=== PATIENT | male | born 1950 | race Caucasian/White ===

== ENCOUNTER 2022-07-28 11:11 | Inpatient (IN) | payer MEDICARE, OTHER ==
[~2022-07-28] VITALS: Ht 172.7 cm; Wt 68.0 kg
[2022-07-28 11:53] LABS: HEMATOCRIT 39.8 % (36.7-47.1); MEAN CORPUSCULAR HEMOGLOBIN 25.9 uug (23.8-33.4); MEAN CORPUSCULAR VOLUME 80.4 fL (73.0-96.2); PLATELET COUNT (AUTO) 343 K/uL (152-348)
--- NOTE | 2022-07-28 12:05 | NUR ---
PT IS IN ROOM #2A. DR STARK EVALUATED THE PT.
[2022-07-28 12:10] LABS: ALANINE AMINOTRANSFERASE 16 U/L (16-63); ALKALINE PHOSPHATASE 118 U/L (50-136); ASPARTATE AMINOTRANSFERASE 20 U/L (15-37); BILIRUBIN,DIRECT 0.2 mg/dL (0.0-0.2); BILIRUBIN,TOTAL 0.5 mg/dL (0.2-1.0); CARBON DIOXIDE 30 mmol/L (21-32); CHLORIDE 101 mmol/L (98-107); CREATININE 0.9 mg/dL (0.6-1.3); GLUCOSE 104 mg/dL (74-106); TOTAL PROTEIN, SERUM 6.7 g/dL (6.4-8.2); UREA NITROGEN, BLOOD 15 mg/dL (7-18)
[2022-07-28] MEDS ORDERED: CEFTRIAXONE /D5W 50ML IVPB **ER PYXIS IV ONE (13:15)
[2022-07-28] MEDS ORDERED: AZITHROMYCIN 500MG/ D5W 250ML IVPB **ER PYXIS ONLY IV ONE (13:15)
[2022-07-28] MEDS ORDERED: CEFTRIAXONE 1 G in IV DEXTROSE 5% 50 ML IV ONE (13:15)
[2022-07-28] MEDS ORDERED: AZITHROMYCIN IV 500 MG in IV DEXTROSE 5% 250 ML IV ONE (13:15)
[2022-07-28] MEDS ORDERED: ACET325C7 PO (13:45)
[2022-07-28] MEDS ORDERED: DEUT12TA PO (13:58)
[2022-07-28] MEDS ORDERED: FOLI1TAB27 PO (13:58)
[2022-07-28] MEDS ORDERED: FAMO20TA8 PO (13:58)
[2022-07-28] MEDS ORDERED: MULT-594 PO (13:58)
[2022-07-28] MEDS ORDERED: LATA2.5D2 EACHEYE (13:58)
[2022-07-28] MEDS ORDERED: LEVE500T20 PO (13:58)
[2022-07-28] MEDS ORDERED: SODIUM CHLORIDE PO (13:58)
[2022-07-28] MEDS ORDERED: ASPI81TA31 PO (13:58)
[2022-07-28] MEDS ORDERED: MIRT-121 PO (13:58)
[2022-07-28] MEDS ORDERED: AMAN100T PO (13:58)
[2022-07-28] MEDS ORDERED: ATOR10TA PO (13:58)
[2022-07-28] MEDS ORDERED: SENN8.6T19 PO (13:58)
[2022-07-28] MEDS ORDERED: BENZ1TAB7 PO (13:58)
[2022-07-28] MEDS ORDERED: BISA10SU95 RC (13:58)
[2022-07-28] MEDS ORDERED: SERT25TA PO (13:58)
[2022-07-28] MEDS ORDERED: DOCU100T2 PO (13:58)
[2022-07-28] MEDS ORDERED: POLY17PO4 PO (13:58)
[2022-07-28] MEDS ORDERED: CHOL-9 PO (13:58)
[2022-07-28] MEDS ORDERED: DONE5TAB34 PO (13:58)
[2022-07-28] MEDS ORDERED: LACT-15 PO (13:58)
--- NOTE | 2022-07-28 15:01 | NUR ---
REPORT WAS GIVEN TO VENEER SAWYER. PT WAS TRANSFERED TO TELEMETRY ROOM #304.
--- NOTE | 2022-07-28 15:15 | NUR ---
ADMITTED FROM [facility] VIA ER A 71 YO MALE AWAKE ALERT AND ANSWERS QUESTIONS APPROPRIATELY WITH ADM DX PF PNEUMONIA. WARM AND DRY TO TOUCH WITH RA O2 SATS 98% RA. ORIENTED TO ROOM, ROUTINE ADMISSION ASSESSMENTS INITIATED DR SALES NOTIFIED FOR ADMISSION ORDERS. SR ON MONITOR
[2022-07-28 16:06] VITALS: BP 111/60
[2022-07-28] MEDS ORDERED: MIRALAX 17 GM POWD.PACK PO PRN (16:45)
[2022-07-28] MEDS ORDERED: Medication Not On Formulary EA (Acetaminophen (Tylenol) 650 MG) PO SCH (16:45)
[2022-07-28] MEDS ORDERED: DEUTETRABENAZINE 12 MG PO SCH (17:00)
[2022-07-28] MEDS ORDERED: ACETAMINOPHEN 325 MG TABLET PO PRN (17:00)
[2022-07-28] MEDS ORDERED: MORPHINE SULFATE 2 MG/1 ML DISP.SYRIN IV PRN (17:00)
[2022-07-28] MEDS ORDERED: POTASSIUM CHLORIDE 20 MEQ TAB.PRT.SR PO ONE (17:15)
[2022-07-28] MEDS ORDERED: POTASSIUM CHLORIDE 20 MEQ POWDER PACKET PO ONE (17:30)
[2022-07-28] MEDS: AMANTADINE HCL 100 MG CAPSULE PO SCH (17:38)
[2022-07-28] MEDS: levETIRAcetam 500 MG TABLET PO SCH (17:38)
[2022-07-28] MEDS: BENZTROPINE MESYLATE 1 MG TABLET PO SCH (17:38)
[2022-07-28] MEDS ORDERED: PIPERACILLIN SODIUM/TAZOBACTAM 3.375 G in IV DEXTROSE 5% 50 ML IV SCH ×4 (18:00)
[2022-07-28 18:22] LABS: *BILIRUBIN,URIN NEGATIVE (NEGATIVE); *CLARITY,URINE CLEAR (CLEAR); *COLOR,URINE YELLOW (YELLOW); *KETONES,URINE NEGATIVE (NEGATIVE); *UROBILINOGEN,URINE 0.2 E.U./dl (NORMAL); LEUKOCYTE ESTERASE ,URINE 1+ (NEGATIVE); NITRITE, URINE NEGATIVE (NEGATIVE); PH,URINE 6.5 (5.0-8.0); UGLUCOSE NEGATIVE (NEGATIVE)
[2022-07-28 18:24] LABS: *BLOOD, URINE TRACE (NEGATIVE)
[2022-07-28 18:42] LABS: BACTERIA,URINE MANY /HPF (NONE SEEN); SQUAMOUS EPITHELIAL CELL,UR MANY /HPF (NONE SEEN); WBC,URINE 20-50 /HPF (0-3)
[2022-07-28 18:43] LABS: COARSE GRANULAR CASTS,URINE 0-3 /LPF
[2022-07-28 20:00] VITALS: BP 100/60
--- NOTE | 2022-07-28 20:00 | NUR ---
NSG: Received patient lying in bed. Alert and oriented x2. verbally responsive. no c/o pain or discomfort at this time. on telemetry which showing sr 60-70. patient is incontinent of b+b. call light w/in reach.
[2022-07-28] MEDS: DONEPEZIL 5 MG TABLET PO SCH (20:14)
[2022-07-28] MEDS: MIRTAZAPINE 15 MG TABLET PO SCH (20:14)
[2022-07-28] MEDS: DOCUSATE SODIUM 100 MG CAPSULE PO SCH (20:14)
[2022-07-28] MEDS: BISACODYL 10 MG SUPP.RECT RC SCH (20:14)
[2022-07-28] MEDS: LATANOPROST OPHT DROP 2.5 ML BOTTLE EACHEYE SCH (20:14)
[2022-07-28] MEDS: ATORVASTATIN 10 MG TABLET PO SCH (20:17)
[2022-07-28] MEDS ORDERED: Medication Not On Formulary EA (Docusate Sodium 200 MG) PO SCH (21:00)
[2022-07-28 23:37] VITALS: BP 108/59
--- NOTE | 2022-07-29 00:02 | NUR ---
patient had large bm. assisted with adl's. kept clean and dry. SR on telemetry with hr 60-70. denies pain and discomfort at this time. call light w/in reach.
[2022-07-29] MEDS: PIPERACILLIN SODIUM/TAZOBACTAM 3.375 G in IV DEXTROSE 5% 100 ML IV SCH ×3 (01:08→17:07)
[2022-07-29 04:00] VITALS: BP 111/59
--- NOTE | 2022-07-29 06:09 | NUR ---
NSG: Remain calm and cooperative. denies pain or discomfort at this time. assisted with adl's.patient had 2 soft large bm after supp given @ 2100 pm. resting in bed comfortably. call light w/in reach.
[2022-07-29 07:19] LABS: MEAN CORPUSCULAR HEMOGLOBIN 26.5 uug (23.8-33.4); MEAN CORPUSCULAR VOLUME 80.5 fL (73.0-96.2); PLATELET COUNT (AUTO) 326 K/uL (152-348)
[2022-07-29 07:26] LABS: THYROID STIMULATING HORMONE 2.219 mIU/mL (0.358-3.740)
[2022-07-29 07:29] LABS: BILIRUBIN,TOTAL 0.6 mg/dL (0.2-1.0); CREATININE 0.8 mg/dL (0.6-1.3); MAGNESIUM 1.9 mg/dL (1.8-2.4); POTASSIUM 3.4 mmol/L (3.5-5.1); TOTAL PROTEIN, SERUM 6.7 g/dL (6.4-8.2)
--- NOTE | 2022-07-29 07:39 | NUR ---
RESTING COMFORTABLY IN BED WITH EYES CLOSE NO SS OF PAIN OR RESPIRATORY DISTRESS. RA O2 97%. SR ON MONITOR
[2022-07-29] MEDS: FAMOTIDINE 20 MG TABLET PO SCH (08:46)
[2022-07-29] MEDS: SENNOSIDES 1 TABLET PO SCH (08:46)
[2022-07-29] MEDS: levETIRAcetam 500 MG TABLET PO SCH ×2 (08:46→17:07)
[2022-07-29] MEDS: MULTIVITAMINS,THERAPEUTIC TABLET PO SCH (08:46)
[2022-07-29] MEDS: ASPIRIN 81 MG TAB.CHEW PO SCH (08:46)
[2022-07-29] MEDS: BENZTROPINE MESYLATE 1 MG TABLET PO SCH ×2 (08:46→17:07)
[2022-07-29] MEDS: BOOST PLUS 237 ML LIQUID (VERY VANILLA) PO SCH ×2 (08:47→17:00)
[2022-07-29] MEDS: AMANTADINE HCL 100 MG CAPSULE PO SCH ×2 (08:50→17:07)
[2022-07-29] MEDS ORDERED: Medication Not On Formulary EA (Multivitamins (Multivitamin) 1 EACH) PO SCH (09:00)
[2022-07-29] MEDS ORDERED: Medication Not On Formulary EA (Sertraline Hcl (Zoloft) 12.5 MG) PO SCH (09:00)
[2022-07-29] MEDS: SERTRALINE HCL 50 MG TABLET PO SCH (11:09)
[2022-07-29 12:00] VITALS: BP 95/56
[2022-07-29] MEDS ORDERED: POTASSIUM CHLORIDE 20 MEQ POWDER PACKET PO ONE (12:00)
--- NOTE | 2022-07-29 12:00 | NUR ---
SEEN BY DR SALES, NOTED LABS AND REPLACED POTASSIUM, IVF STARTED.
--- NOTE | 2022-07-29 14:30 | NUR ---
CT CHEST, ABDOMEN AND PELVIS DONE AWAITING FOR RESULTS
[2022-07-29] MEDS ORDERED: IOHEXOL 300MG/ML 100 ML INFUS..BTL ONE (15:52)
[2022-07-29] MEDS ORDERED: SWABABLE VALVE TRANSFER SET EA MC ONE (15:53)
[2022-07-29] MEDS ORDERED: IV NORMAL SALINE 250 ML IV ONE (15:53)
[2022-07-29 16:00] VITALS: BP 112/67
[2022-07-29] MEDS: POTASSIUM CHLORIDE 20 MEQ in IV NS 1000 ML 1,000 ML IV PRN (17:00)
--- NOTE | 2022-07-29 18:01 | NUR ---
CONTINUE IV ANTIBIOTIC ORDERED, STARTED ON IVF WITH KCL AT 80 MLS/HR VIA MIDLINE BERTO. STILL AWAITING CT CHEST, ABDOMEN, PELVIS
[2022-07-29 19:55] VITALS: BP 110/63
[2022-07-29] MEDS: MIRTAZAPINE 15 MG TABLET PO SCH (21:08)
[2022-07-29] MEDS: DONEPEZIL 5 MG TABLET PO SCH (21:08)
[2022-07-29] MEDS: BISACODYL 10 MG SUPP.RECT RC SCH (21:08)
[2022-07-29] MEDS: ATORVASTATIN 10 MG TABLET PO SCH (21:08)
[2022-07-29] MEDS: DOCUSATE SODIUM 100 MG CAPSULE PO SCH (21:08)
[2022-07-29] MEDS: LATANOPROST OPHT DROP 2.5 ML BOTTLE EACHEYE SCH (21:49)
--- NOTE | 2022-07-30 | NUR ---
RECD PT IN BED,ALERT,ORIENTEDX 2, NEEDS ATTENDED TO.VITAL SIGNS W/I NORMAL LIMITS, NO ACUTE DISTRESS NOTED.NPO POST MN , FORCT GUIDED BX OFLIVER, INSTRUCTED PT REGARDING CONSENT AND PROCEDURE, PT STILL REFUSED TO SIGN.
[2022-07-30] MEDS: PIPERACILLIN SODIUM/TAZOBACTAM 3.375 G in IV DEXTROSE 5% 100 ML IV SCH ×3 (01:04→17:31)
[2022-07-30 05:00] VITALS: BP 135/59
[2022-07-30] MEDS: POTASSIUM CHLORIDE 20 MEQ in IV NS 1000 ML 1,000 ML IV PRN ×2 (06:04→17:49)
--- NOTE | 2022-07-30 07:09 | NUR ---
Pt received in bed observed restless getting out of bed after medication given pt rest during the night . Skin care done every incontinence and sacral wound care done , thick fluids offered to prevent aspiration pt was sitting upright. IV INFUSING LADI no discomfort observed. No visitor to update with plan of care. Special matress placed to prevent wound pressure. Endorse care to incoming NURSE
[2022-07-30 07:16] LABS: HEMATOCRIT 36.7 % (36.7-47.1); MEAN CORPUSCULAR HEMOGLOBIN 25.8 uug (23.8-33.4); MEAN CORPUSCULAR VOLUME 80.4 fL (73.0-96.2); PLATELET COUNT (AUTO) 313 K/uL (152-348)
--- NOTE | 2022-07-30 07:27 | NUR ---
Pt received confused ambulating in the hallway bed alarm in place. Pt got up multiple times with unsteady gait assisted back in bed but pt got up again, pending psychiatrist Dr Weiner with come to see pt in AM. Pt constantly removes the iv x3 restarted HL, Pt got aggressive during the night and spit and kick staff when assisted back in bed, bed alarm always in place. Pt resting since 0500 after medicated with morphine due to lt knee pain. Pt assisted with PO fluids. HL in place pt resting comfortably, endorse care to incoming nurse Addendum: 07/30/22 at 1900 by [facility] INPATIENT RN1 RN WRONG ENTRY WRONG PATIENT
[2022-07-30 07:36] LABS: CARBON DIOXIDE 26 mmol/L (21-32); CHLORIDE 106 mmol/L (98-107); CREATININE 0.7 mg/dL (0.6-1.3); GLUCOSE 102 mg/dL (74-106); PHOSPHOROUS 2.4 mg/dL (2.5-4.9); POTASSIUM 3.4 mmol/L (3.5-5.1); UREA NITROGEN, BLOOD 14 mg/dL (7-18)
--- NOTE | 2022-07-30 09:00 | NUR ---
AWAKE COOPERATIVE SPEECH UNCLEAR SIMPLE NEEDS ASSISTED.NO S/S OF PAIN OR DISCOMFORTS AT THIS TIME IVF IN PROGRESS ORDERED REMAIN ON ATB WITH NO ADVERSE OR ALLERGIC REACTIONS AT THIS TIME.TURNED AND REPOSITIONED FOR COMFORT MADE COMFORTABLE CALL LIGHTS AND PERSONAL BELONGINGS ARE WITHIN EASY REACH WILL CONTINUE TO OBSERVE.
[2022-07-30] MEDS: FAMOTIDINE 20 MG TABLET PO SCH (09:47)
[2022-07-30] MEDS: SERTRALINE HCL 50 MG TABLET PO SCH (09:47)
[2022-07-30] MEDS: BENZTROPINE MESYLATE 1 MG TABLET PO SCH ×2 (09:47→17:31)
[2022-07-30] MEDS: levETIRAcetam 500 MG TABLET PO SCH ×2 (09:47→17:32)
[2022-07-30] MEDS: ASPIRIN 81 MG TAB.CHEW PO SCH (09:48)
[2022-07-30] MEDS: SENNOSIDES 1 TABLET PO SCH (09:48)
[2022-07-30] MEDS: MULTIVITAMINS,THERAPEUTIC TABLET PO SCH (09:48)
[2022-07-30] MEDS: AMANTADINE HCL 100 MG CAPSULE PO SCH ×2 (09:50→17:42)
[2022-07-30] MEDS: BOOST PLUS 237 ML LIQUID (VERY VANILLA) PO SCH ×2 (09:52→17:32)
[2022-07-30 11:34] VITALS: BP 123/68
[2022-07-30] MEDS ORDERED: POTASSIUM CHLORIDE 20 MEQ POWDER PACKET GT ONE ×2 (12:30)
--- NOTE | 2022-07-30 12:45 | NUR ---
WOUND CARE CONSULT: PT EATING AT THIS TIME. REVIEWED CHART, NURSING DOCUMENTATION AND SPOKE WITH NURSING STAFF, INDICATING SACRAL DEEP TISSUE INJURY IN EVOLUTION, PRESENT ON ADMISSION. RECOMMENDATIONS MADE FOR SKIN PROTECTION AND WOUND CARE. DISCUSSED WITH NURSING STAFF. MD IN AGREEMENT WITH PLAN OF CARE.
[2022-07-30 15:43] VITALS: BP 130/73
[2022-07-30] MEDS ORDERED: NEUTRA PHOS PACKET PO ONE (17:00)
--- NOTE | 2022-07-30 19:10 | NUR ---
ASKED PATIENT IF HE HAS ANY FAMILY MEMBER TO CALL RE CONSCENT FOR THE CT GUIDED NEEDLE BIOPSY ORDERED STATED HAS NO FAMILY AND HE WILL NO SIGN THE CONSCENT ENDORSED WILL NOTIFY RANDALL
[2022-07-30 20:00] VITALS: BP 136/75
[2022-07-30] MEDS: LATANOPROST OPHT DROP 2.5 ML BOTTLE EACHEYE SCH (21:05)
[2022-07-30] MEDS: DOCUSATE SODIUM 100 MG CAPSULE PO SCH (21:06)
[2022-07-30] MEDS: MIRTAZAPINE 15 MG TABLET PO SCH (21:06)
[2022-07-30] MEDS: DONEPEZIL 5 MG TABLET PO SCH (21:06)
[2022-07-30] MEDS: ATORVASTATIN 10 MG TABLET PO SCH (21:06)
[2022-07-30] MEDS: BISACODYL 10 MG SUPP.RECT RC SCH (21:07)
--- NOTE | 2022-07-31 | NUR ---
STILL ON SPECIALTY MATTRESS,SACRAL SORE STILL NOTED,COVERED W/ XEROFORM AND MEPILEX.SLEPT ON AND OFF.KEPT WARM AND DRY. IVF INFUSING WELL VIA MIDLINE ON RIGHT UPPER ARM.
[2022-07-31] MEDS: PIPERACILLIN SODIUM/TAZOBACTAM 3.375 G in IV DEXTROSE 5% 100 ML IV SCH ×3 (01:35→18:23)
[2022-07-31 04:00] VITALS: BP 132/76
[2022-07-31 06:55] LABS: CARBON DIOXIDE 25 mmol/L (21-32); CHLORIDE 107 mmol/L (98-107); CREATININE 0.7 mg/dL (0.6-1.3); GLUCOSE 109 mg/dL (74-106); PHOSPHOROUS 2.3 mg/dL (2.5-4.9); POTASSIUM 3.9 mmol/L (3.5-5.1); UREA NITROGEN, BLOOD 13 mg/dL (7-18)
--- NOTE | 2022-07-31 07:34 | NUR ---
ENDORSED TO AM NURSE IN FAIR CONDITION.
[2022-07-31] MEDS: BOOST PLUS 237 ML LIQUID (VERY VANILLA) PO SCH ×3 (08:18→17:10)
[2022-07-31 08:42] LABS: FERRITIN 380 ng/mL (26-388); LACTATE DEHYDROGENASE 221 U/L (85-227)
[2022-07-31] MEDS: MULTIVITAMINS,THERAPEUTIC TABLET PO SCH (09:55)
[2022-07-31] MEDS: SENNOSIDES 1 TABLET PO SCH (09:55)
[2022-07-31] MEDS: FAMOTIDINE 20 MG TABLET PO SCH (09:55)
[2022-07-31] MEDS: SERTRALINE HCL 50 MG TABLET PO SCH (09:55)
[2022-07-31] MEDS: ASPIRIN 81 MG TAB.CHEW PO SCH (09:55)
[2022-07-31] MEDS: BENZTROPINE MESYLATE 1 MG TABLET PO SCH ×2 (09:55→16:20)
[2022-07-31] MEDS: levETIRAcetam 500 MG TABLET PO SCH ×2 (09:55→16:20)
[2022-07-31] MEDS: AMANTADINE HCL 100 MG CAPSULE PO SCH ×2 (09:56→16:20)
[2022-07-31] MEDS: POTASSIUM CHLORIDE 20 MEQ in IV NS 1000 ML 1,000 ML IV PRN (11:21)
[2022-07-31 11:48] VITALS: BP 138/78
[2022-07-31 16:00] VITALS: BP 151/56
[2022-07-31] MEDS ORDERED: NEUTRA PHOS PACKET PO ONE (16:00)
[2022-07-31 20:00] VITALS: BP 127/79
[2022-07-31] MEDS: MIRTAZAPINE 15 MG TABLET PO SCH (20:29)
[2022-07-31] MEDS: DONEPEZIL 5 MG TABLET PO SCH (20:29)
[2022-07-31] MEDS: FERROUS SULFATE 325 MG TABEC PO SCH (20:29)
[2022-07-31] MEDS: ATORVASTATIN 10 MG TABLET PO SCH (20:29)
[2022-07-31] MEDS: LATANOPROST OPHT DROP 2.5 ML BOTTLE EACHEYE SCH (20:30)
[2022-07-31] MEDS: BISACODYL 10 MG SUPP.RECT RC SCH (20:41)
[2022-07-31] MEDS: DOCUSATE SODIUM 100 MG CAPSULE PO SCH (20:41)
[2022-08-01] MEDS: PIPERACILLIN SODIUM/TAZOBACTAM 3.375 G in IV DEXTROSE 5% 100 ML IV SCH ×2 (01:22→09:45)
[2022-08-01] MEDS: POTASSIUM CHLORIDE 20 MEQ in IV NS 1000 ML 1,000 ML IV PRN (01:22)
[2022-08-01 04:00] VITALS: BP 122/71
[2022-08-01 07:05] LABS: MEAN CORPUSCULAR HEMOGLOBIN 26.1 uug (23.8-33.4); MEAN CORPUSCULAR VOLUME 81.3 fL (73.0-96.2); PLATELET COUNT (AUTO) 306 K/uL (152-348)
[2022-08-01 07:19] LABS: CARBON DIOXIDE 26 mmol/L (21-32); CHLORIDE 107 mmol/L (98-107); CREATININE 0.8 mg/dL (0.6-1.3); GLUCOSE 102 mg/dL (74-106); MAGNESIUM 1.8 mg/dL (1.8-2.4); POTASSIUM 4.5 mmol/L (3.5-5.1); UREA NITROGEN, BLOOD 8 mg/dL (7-18)
[2022-08-01] MEDS: BOOST PLUS 237 ML LIQUID (VERY VANILLA) PO SCH ×2 (07:30→16:13)
[2022-08-01 08:06] LABS: *IMMUNOGLOBULIN G, SERUM 1276 mg/dL (603-1613); IMMUNOGLOBULIN M, SERUM 155 mg/dL (15-143)
[2022-08-01] MEDS: levETIRAcetam 500 MG TABLET PO SCH ×2 (08:38→16:13)
[2022-08-01] MEDS: SERTRALINE HCL 50 MG TABLET PO SCH (08:38)
[2022-08-01] MEDS: BENZTROPINE MESYLATE 1 MG TABLET PO SCH ×2 (08:38→16:13)
[2022-08-01] MEDS: SENNOSIDES 1 TABLET PO SCH (08:38)
[2022-08-01] MEDS: ASPIRIN 81 MG TAB.CHEW PO SCH (08:38)
[2022-08-01] MEDS: MULTIVITAMINS,THERAPEUTIC TABLET PO SCH (08:39)
[2022-08-01] MEDS: FERROUS SULFATE 325 MG TABEC PO SCH ×2 (08:39→21:14)
[2022-08-01] MEDS: FAMOTIDINE 20 MG TABLET PO SCH (08:39)
[2022-08-01] MEDS: AMANTADINE HCL 100 MG CAPSULE PO SCH ×2 (08:42→16:15)
[2022-08-01] MEDS ORDERED: LIDOCAINE HCL 1% 20 ML VIAL ONE (09:59)
--- NOTE | 2022-08-01 09:59 | NUR ---
WOUND CARE CONSULT: PT PRESENTS WITH SACRAL DEEP TISSUE INJURY, WHICH WAS NOTED TO BE PRESENT ON ADMISSION. DEEP TISSUE INJURY IS INTACT AT THIS TIME WITH SURROUNDING SCARRING AND VERY BONY SACRAL AREA. DISCUSSED SKIN PROTECTION WITH NURSING STAFF. PT BECOMES RESTLESS/AGITATED AT TIMES AND NOTED TO BE MOVING ABOUT IN THE BED. PT IS INCONTINENT. LOW AIRLOSS MATTRESS DISCONTINUED FOR PT SAFETY PER ASSISTANT CLINICAL DIRECTOR. MD IN AGREEMENT WITH PLAN OF CARE. Addendum: 08/01/22 at 1000 by SHANI BURROUGHS RN Amended: Links added.
[2022-08-01] MEDS ORDERED: FLUMAZENIL 0.5 MG/5 ML VIAL IVP PRN (10:00)
[2022-08-01 10:07] LABS: AFP, TUMOR MARKER 2.6 ng/mL (0.0-8.4); CARBOHYDRATE ANTIGEN, 19-9 3 U/mL (0-35)
[2022-08-01] MEDS ORDERED: MIDAZOLAM HCL 2 MG/2 ML VIAL IV PRN (10:15)
[2022-08-01] MEDS ORDERED: FENTANYL CITRATE 100 MCG/2 ML AMPUL IV PRN (10:15)
[2022-08-01] MEDS ORDERED: NALOXONE HCL 0.4 MG/ML AMPUL IV PRN (10:30)
[2022-08-01 12:00] VITALS: BP 143/90
--- NOTE | 2022-08-01 12:40 | NUR ---
pt went to radiology via bed for the procedure
[2022-08-01 13:06] LABS: A/G RATIO 0.6 (0.7-1.7); ALBUMIN 2.1 g/dL (2.9-4.4); ALPHA-1-GLOBULIN 0.5 g/dL (0.0-0.4); ALPHA-2-GLOBULIN 0.8 g/dL (0.4-1.0); BETA GLOBULIN 0.8 g/dL (0.7-1.3); GAMMA GLOBULIN 1.3 g/dL (0.4-1.8); GLOBULIN, TOTAL 3.3 g/dL (2.2-3.9); M-SPIKE Not Observed g/dL (Not Observed)
[2022-08-01 14:10] VITALS: BP 145/86
--- NOTE | 2022-08-01 14:52 | NUR ---
pt received from recovery room via bed after the procedure in shin condition
[2022-08-01 15:01] VITALS: BP 152/80
[2022-08-01] MEDS ORDERED: BISACODYL 10 MG SUPP.RECT RC PRN (15:30)
[2022-08-01 16:00] VITALS: BP 144/83
[2022-08-01 20:00] VITALS: BP 121/81
[2022-08-01] MEDS: LATANOPROST OPHT DROP 2.5 ML BOTTLE EACHEYE SCH (21:14)
[2022-08-01] MEDS: DONEPEZIL 5 MG TABLET PO SCH (21:14)
[2022-08-01] MEDS: ATORVASTATIN 10 MG TABLET PO SCH (21:14)
[2022-08-01] MEDS: DOCUSATE SODIUM 100 MG CAPSULE PO SCH (21:14)
[2022-08-01] MEDS: MIRTAZAPINE 15 MG TABLET PO SCH (21:14)
[2022-08-02 04:00] VITALS: BP 144/81
[2022-08-02] MEDS: BOOST PLUS 237 ML LIQUID (VERY VANILLA) PO SCH ×2 (08:25→16:48)
[2022-08-02] MEDS: SERTRALINE HCL 50 MG TABLET PO SCH (08:26)
[2022-08-02] MEDS: SENNOSIDES 1 TABLET PO SCH (08:27)
[2022-08-02] MEDS: ASPIRIN 81 MG TAB.CHEW PO SCH (08:27)
[2022-08-02] MEDS: MULTIVITAMINS,THERAPEUTIC TABLET PO SCH (08:27)
[2022-08-02] MEDS: BENZTROPINE MESYLATE 1 MG TABLET PO SCH ×2 (08:27→17:17)
[2022-08-02] MEDS: FAMOTIDINE 20 MG TABLET PO SCH (08:27)
[2022-08-02] MEDS: levETIRAcetam 500 MG TABLET PO SCH ×2 (08:27→17:17)
[2022-08-02] MEDS: FERROUS SULFATE 325 MG TABEC PO SCH ×2 (08:27→20:27)
[2022-08-02] MEDS: AMANTADINE HCL 100 MG CAPSULE PO SCH ×2 (08:49→17:18)
[2022-08-02 11:33] VITALS: BP 105/84
[2022-08-02 14:41] LABS: HEMATOCRIT 37.6 % (36.7-47.1)
[2022-08-02 15:03] VITALS: BP 135/80
[2022-08-02] MEDS ORDERED: FERR325T28 PO (15:40)
--- NOTE | 2022-08-02 17:45 | NUR ---
Pt. has been stable during the shift. No change in condition noted. Kept the pt. clean and dry. Pt. supposed to be discharge to [facility] but it is postponed to tomorrow. All needs attended and met. Will keep monitoring the patient.
[2022-08-02 19:45] VITALS: BP 154/82
--- NOTE | 2022-08-02 20:00 | NUR ---
RECEIVED PATIENT LAYING IN BED, INTERMITTENTLY DOZING OFF. ALERT AND ORIENTED X2-3, OFTEN FORGETFUL. DOES NOT SHOW ANY SIGNS OF DISTRESS. BERTO MIDLINE INTACT AND PATENT. SAFETY MEASURES IN PLACE. WILL CONTINUE PLAN OF CARE.
[2022-08-02] MEDS: DONEPEZIL 5 MG TABLET PO SCH (20:26)
[2022-08-02] MEDS: MIRTAZAPINE 15 MG TABLET PO SCH (20:26)
[2022-08-02] MEDS: DOCUSATE SODIUM 100 MG CAPSULE PO SCH (20:27)
[2022-08-02] MEDS: ATORVASTATIN 10 MG TABLET PO SCH (20:27)
[2022-08-02] MEDS: LATANOPROST OPHT DROP 2.5 ML BOTTLE EACHEYE SCH (20:29)
[2022-08-03 05:00] VITALS: BP 137/93
--- NOTE | 2022-08-03 06:10 | NUR ---
PATIENT RESTED WELL IN BETWEEN CARE. BERTO MIDLINE INTACT AND PATENT. SAFETY MEASURES IN PLACE, HOURLY ROUNDING COMPLETED. CONTINUE TO MONITOR, CONTINUE PLAN OF CARE.
[2022-08-03] MEDS: ASPIRIN 81 MG TAB.CHEW PO SCH (08:27)
[2022-08-03] MEDS: MULTIVITAMINS,THERAPEUTIC TABLET PO SCH (08:27)
[2022-08-03] MEDS: SENNOSIDES 1 TABLET PO SCH (08:27)
[2022-08-03] MEDS: levETIRAcetam 500 MG TABLET PO SCH (08:27)
[2022-08-03] MEDS: FAMOTIDINE 20 MG TABLET PO SCH (08:27)
[2022-08-03] MEDS: BENZTROPINE MESYLATE 1 MG TABLET PO SCH (08:27)
[2022-08-03] MEDS: FERROUS SULFATE 325 MG TABEC PO SCH (08:27)
[2022-08-03] MEDS: SERTRALINE HCL 50 MG TABLET PO SCH (08:27)
[2022-08-03] MEDS: BOOST PLUS 237 ML LIQUID (VERY VANILLA) PO SCH (08:28)
[2022-08-03] MEDS: AMANTADINE HCL 100 MG CAPSULE PO SCH (08:34)
--- NOTE | 2022-08-03 11:26 | NUR ---
Pt. is discharged to [facility]. Noted to be stable upon the discharge. Called the facility and gave report to Contreras. Personal belonging given to the patient.
== END 2022-08-03 11:30 | disposition still patient (30) | DRG 871 ==
LOC: ER 11:16 → TELE3 13:59 → MEDSURG3 07-29 11:05
PROVIDERS: ADMIT Internal Medicine; ATTEND Internal Medicine
PROC: 05HB33Z Insertion of Infusion Device into Right Basilic Vein, Percutaneous Approach (ICD-10-PCS; 2022-07-29)
PROC: 0TB43ZX Excision of Left Kidney Pelvis, Percutaneous Approach, Diagnostic (ICD-10-PCS; principal; 2022-08-01)
DX: A41.9 Sepsis, unspecified organism (principal); G92.8 Other toxic encephalopathy; J18.8 Other pneumonia, unspecified organism; C64.2 Malignant neoplasm of left kidney, except renal pelvis; C78.02 Secondary malignant neoplasm of left lung; C78.01 Secondary malignant neoplasm of right lung; C77.1 Secondary and unspecified malignant neoplasm of intrathoracic lymph nodes; N39.0 Urinary tract infection, site not specified; C78.7 Secondary malignant neoplasm of liver and intrahepatic bile duct; D68.59 Other primary thrombophilia; F02.83 Dementia in other diseases classified elsewhere, unspecified severity, with mood disturbance; J98.11 Atelectasis; E46 Unspecified protein-calorie malnutrition; M24.412 Recurrent dislocation, left shoulder; Z74.09 Other reduced mobility; Z20.822 Contact with and (suspected) exposure to COVID-19; Z86.16 Personal history of COVID-19; G20 Parkinson's disease; F02.80 Dementia in other diseases classified elsewhere, unspecified severity, without behavioral disturbance, psychotic disturbance, mood disturbance, and anxiety; D75.89 Other specified diseases of blood and blood-forming organs; E87.6 Hypokalemia; G40.909 Epilepsy, unspecified, not intractable, without status epilepticus; G30.9 Alzheimer's disease, unspecified; Z90.49 Acquired absence of other specified parts of digestive tract; I69.320 Aphasia following cerebral infarction; E88.09 Other disorders of plasma-protein metabolism, not elsewhere classified; D64.9 Anemia, unspecified; R13.10 Dysphagia, unspecified; E61.1 Iron deficiency
CPT/HCPCS: 36415; 71045; 71260; 73000; 73030; 74150; 82105; 82378; 82746; 82784; 83550; 83615; 83735; 84100; 84155; 84165; 84443; 84484; 85018; 85025; 85610; 86301; 86334; 87040; 93005; 93307; A4663; A6209; A6213; G0378; J0456; J0696; J2250; J2270; J2543; J3010; J3480; J3490; J7040; Q9967